=== PATIENT | male | born 1975 | race Caucasian/White ===

== ENCOUNTER 2017-01-18 20:45 | Emergency (ER) | payer MEDICAID ==
[2017-01-18] MEDS ORDERED: NS 1,000 ML IV ONE (21:53)
[2017-01-18 21:58] LABS: % IMMATURE GRANULYOCYTES 0.2 % (0.0-1.1); ABSOLUTE IMMATURE GRANULOCYTES 0.02 10^3/uL (0.00-0.10); ADD DIFF? NO; ADD MORPH? NO; ADD SCAN? NO; ATYPICAL LYMPHOCYTE FLAG 10 (0-99); FRAGMENT RBC FLAG 0 (0-99); HEMATOCRIT 40.5 % (40.0-51.0); HEMOGLOBIN 13.9 g/dL (13.7-17.5); LEFT SHIFT FLG 0 (0-99); LIPEMIA HEMOLYSIS FLAG 90 (0-99); MEAN CELL HEMOGLOBIN 28.5 pg (27.9-34.1); MEAN CELL HEMOGLOBIN CONCENTR. 34.3 g/dL (32.4-36.7); PLATELET CLUMPS FLAG 10 (0-99); PLATELET COUNT 270 10^3/uL (150-400); RED BLOOD CELL COUNT 4.88 10^6/uL (4.40-6.38); RED CELL DISTRIBUTION WIDTH 13.3 % (11.5-15.2)
--- NOTE | 2017-01-18 21:58 | EDPHY ---
H & P Stated Complaint: pt says having SI Source: Patient Exam Limitations: No limitations - Medical/Surgical History Hx Asthma: No Hx Chronic Respiratory Disease: No Hx Diabetes: No Hx Cardiac Disease: No Hx Renal Disease: No Hx Cirrhosis: No Hx Alcoholism: No Hx HIV/AIDS: No Hx Splenectomy or Spleen Trauma: No Other PMH: anxiety/depression, appendectomy, orif LLE - Family History Significant Family History: No pertinent family hx - Social History Smoking Status: Current some day smoker Alcohol Use: Sober Drug Use: None Time Seen by Provider: 01/18/17 21:47 HPI/ROS: CHIEF COMPLAINT: Suicidal ideation HISTORY OF PRESENT ILLNESS: Patient is a 41-year-old man with a history of bipolar as psychotic features comes to the emergency department complaining of suicidal ideations. He states that his friends made him come. He was recently admitted to a psychiatric facility but discharged and states that he has been drinking heavily since. He has also been using marijuana today. He states that he had but a flare gun today because he knows a can fit a 12 gauge shotgun cartridge and plans to kill himself at the [employer] on Wednesday. He states that for the last 2 days he has been trying to drink himself to . REVIEW OF SYSTEMS: Constitutional: denies: chills, fever, recent illness, recent injury EENTM: denies: blurred vision, double vision, nose congestion Respiratory: denies: cough, shortness of breath Cardiac: denies: chest pain, irregular heart rate, lightheadedness, palpitations Gastrointestinal/Abdominal: denies: abdominal pain, diarrhea, nausea, vomiting, blood streaked stools Genitourinary: denies: dysuria, frequency, hematuria, pain Musculoskeletal: denies: joint pain, muscle pain Skin: denies: lesions, rash, jaundice, bruising Neurological: denies: headache, numbness, paresthesia, tingling, dizziness, weakness Hematologic/Lymphatic: denies: blood clots, easy bleeding, easy bruising Immunologic/allergic: denies: HIV/AIDS, transplant EXAM: GENERAL: Disheveled and in no acute distress. HEAD: Atraumatic, normocephalic. EYES: Pupils equal round and reactive to light, extraocular movements intact, sclera anicteric, conjunctiva are normal. ENT: TMs normal, nares patent, oropharynx clear without exudates. Moist mucous membranes. NECK: Normal range of motion, supple without lymphadenopathy or JVD. LUNGS: Breath sounds clear to auscultation bilaterally and equal. No wheezes rales or rhonchi. HEART: Regular rate and rhythm without murmurs, rubs or gallops. ABDOMEN: Soft, nontender, normoactive bowel sounds. No guarding, no rebound. No masses appreciated. BACK: No CVA tenderness, no spinal tenderness, step-offs or deformities EXTREMITIES: Normal range of motion, no pitting or edema. No clubbing or cyanosis. NEUROLOGICAL: Cranial nerves II through XII grossly intact. Normal speech, normal gait. 5/5 strength, normal movement in all extremities, normal sensation PSYCH: Normal mood, normal affect. SKIN: Warm, dry, normal turgor, no visible rashes or lesions. (Adán Fam) Constitutional: Initial Vital Signs Temperature (C) 37.1 C 01/18/17 20:57 Heart Rate 129 H 01/18/17 20:57 Respiratory Rate 18 01/18/17 20:57 Blood Pressure 127/87 H 01/18/17 20:57 O2 Sat (%) 93 01/18/17 20:57 O2 Delivery Mode Room Air Allergies/Adverse Reactions: Penicillins Allergy (Verified 01/18/17 21:00) Home Medications: Medication Instructions Recorded Ativan 01/18/17 Bupropion HCl 01/18/17 Effexor Xr 01/18/17 GABAPENTIN 01/18/17 [place] 5/325 (*) 01/18/17 ZYRTEC 01/18/17 Medical Decision Making ED Course/Re-evaluation: 0 700: The patient is signed out to me at change of shift by Dr. Driscoll. Patient is resting comfortably in the room. He has no new complaints. (Vilma Hill) I took over care of this patient at 7:00 a.m.. This patient is here for suicidal ideations. He is also bipolar. He was drinking alcohol last night. He is waiting evaluation. He has been medically cleared. He is on an M1 hold. Care turned over to Dr. Paredes at 3:30 p.m.. Psychiatric disposition pending. ( Maury Bentley) 6:00 a.m. the patient is no longer tachycardic. His blood alcohol level is below 50. Mental health has been called to evaluate. 7:00 a.m. care transferred to Dr. Maury Bentley. (Adán Fam) Differential Diagnosis: Partial list of the Differential diagnosis considered include but were not limited to; suicidality, depression, substance abuse and although unlikely based on the history and physical exam, I also considered injury, infection. (Adán Fam) Other Provider: I assumed care of the patient at 3:30 p.m. with psychiatric disposition pending. Update at 10:30 p.m.: The patient has been accepted for inpatient admission at [facility] by Dr. Barakat. I have filled out the EMTALA transfer form. ( Michael Paredes) 6:36 a.m.- I assumed care of this patient at approximately 11:00 p.m.. The plan was for the patient to be transferred to [facility]. However, because of insurance issues, he was not transferred during my shift. The mental health team is looking for possible other options for him. He has been stable throughout my shift and will be signed out to the [facility] provider Dr. Hill. (Lauren Driscoll) - Data Points Laboratory Results: Laboratory Results 01/18/17 21:50 01/18/17 21:50 Medications Given: Discontinued Medications Sodium Chloride (Ns) 1,000 mls @ 0 mls/hr IV ONCE ONE PRN Reason: Wide Open Stop: 01/18/17 21:54 Last Admin: 01/18/17 21:54 Dose: 1,000 mls Sodium Chloride (Ns) 1,000 mls @ 0 mls/hr IV ONCE ONE PRN Reason: Wide Open Stop: 01/19/17 00:44 Last Admin: 01/18/17 22:30 Dose: 1,000 mls Sodium Chloride (Ns) 1,000 mls @ 0 mls/hr IV ONCE ONE PRN Reason: Wide Open Stop: 01/19/17 00:46 Last Admin: 01/19/17 00:46 Dose: 1,000 mls Departure - Departure Disposition: Other Psych, Not [place] Clinical Impression: Suicidal ideation Condition: Fair Referrals: NONE *PRIMARY CARE P,. [Primary Care Provider] - As per Instructions
[2017-01-18 22:08] LABS: ANION GAP 17 mEq/L (8-16); CALCIUM 9.4 mg/dL (8.5-10.4); CARBON DIOXIDE 23 mEq/l (22-31); CHLORIDE 105 mEq/L (97-110); CREATININE 0.9 mg/dL (0.7-1.3); ETHANOL SERUM 246 mg/dL (0-10); GLOMERULAR FILTRATION RATE > 60; GLUCOSE 97 mg/dL (70-100); POTASSIUM 3.9 mEq/L (3.5-5.2); SODIUM 145 mEq/L (134-144)
[2017-01-19] MEDS ORDERED: NS 1,000 ML IV ONE ×2 (00:43→00:45)
[2017-01-20 09:18] VITALS: O2SAT 94
[2017-01-20 15:23] VITALS: BP 134/96; PULSE 100; RESP 16; TEMP 98.1
== END 2017-01-20 15:21 ==
DX: R45.851 Suicidal ideations (principal); F17.200 Nicotine dependence, unspecified, uncomplicated
CPT/HCPCS: 80305; G0480

== ENCOUNTER 2017-03-13 12:41 | Emergency (ER) | payer MEDICAID ==
[2017-03-13 12:53] VITALS: RESP 16
--- NOTE | 2017-03-13 13:18 | EDPHY ---
H & P Stated Complaint: M1-SI , etoh, hearing voices to harm self Time Seen by Provider: 03/13/17 13:18 - Medical/Surgical History Hx Asthma: No Hx Chronic Respiratory Disease: No Hx Diabetes: No Hx Cardiac Disease: No Hx Renal Disease: No Hx Cirrhosis: No Hx Alcoholism: No Hx HIV/AIDS: No Hx Splenectomy or Spleen Trauma: No Other PMH: anxiety/depression, appendectomy, Released cent peaks early february 2017 - Social History Smoking Status: Current some day smoker Constitutional: Initial Vital Signs Temperature (C) 36.9 C 03/13/17 12:50 Heart Rate 95 03/13/17 12:50 Respiratory Rate 16 03/13/17 12:50 Blood Pressure 158/85 H 03/13/17 12:50 O2 Sat (%) 98 03/13/17 12:50 O2 Delivery Mode Room Air Allergies/Adverse Reactions: Penicillins Allergy (Verified 01/18/17 21:00) Home Medications: Medication Instructions Recorded Ativan 01/18/17 Bupropion HCl 01/18/17 Effexor Xr 01/18/17 GABAPENTIN 01/18/17 Adderall 30 mg Tablet 03/13/17 Medical Decision Making ED Course/Re-evaluation: CHIEF COMPLAINT: Psychiatric evaluation HISTORY OF PRESENT ILLNESS: 42-year-old gentleman who we have seen here multiple times for his schizophrenia. This patient was hearing voices and the voices were telling him to harm himself. He walked into a veterinary emergency department thinking that it was a human emergency department asking for help. They called the police and ambulance and he was safely transported here for evaluation. The patient is very common cooperative but states that he is hearing voices. It is unclear whether not he is compliant with his medicines at this time. He denies any drug or alcohol abuse. REVIEW OF SYSTEMS: A 10 point review of systems was performed and is negative with the exception of the elements mentioned in the history of present illness. PHYSICAL EXAM: General Appearance: Alert, well hydrated, appropriate, and non-toxic appearing. Head: Atraumatic without scalp tenderness or obvious injury Eyes: Pupils equal, round, reactive to light and accommodation, EOMI, no trauma , no injection. Ears: Clear bilaterally, no perforation, normal landmarks Nose: Atraumatic, no rhinorrhea, clear. Throat: There is no erythema or exudates, no lesions, normal tonsils, mucus membranes moist. Neck: Supple, 2+ carotid upstroke, nontender, no lymphadenopathy. Respiratory: No retractions, no distress, no wheezes, and no accessory muscle use. Lungs are clear to auscultation bilaterally. Cardiovascular: Regular rate and rhythm, no murmurs, rubs, or gallops. Bilateral carotid, radial, dorsalis pedis, and posterior tibial pulses intact. Good capillary refill all extremities. Gastrointestinal: Abdomen is soft, nontender, non-distended, no masses, no rebound, no guarding, no peritoneal signs. Musculoskeletal: Normal active ROM of all extremities, atraumatic. Neurological: Alert, appropriate, and interactive. The patient has normal DTRs and non-focal cranial nerves, motor, sensory, and cerebellar exam. Skin: No rashes, good turgor, no nodules on palpation. Past medical history: Psychiatric illness including schizophrenia Past surgical history: Noncontributory Family history: Patient unsure Social history: Patient not forthcoming with information to a great extent but he apparently is single and unemployed and denies tobacco drug or alcohol abuse DIFFERENTIAL DIAGNOSIS: The differential diagnosis for the patient's depression included but was not limited to functional and major depression, situational depression, medication side effect, drugs, and alcohol abuse. MEDICAL DECISION MAKING: Patient is in no acute distress and is hemodynamically stable. We are awaiting psychiatric team's evaluation. Patient has known history of psychiatric disorders and is here for evaluation. 1957: Consulted with mental health. He has been evaluated by mental health. They recommend transfer to [facility] and do not feel placement is necessary. I have lifted the hold. - Data Points Laboratory Results: Laboratory Results 03/13/17 13:25 03/13/17 13:25 03/13/17 03/13/17 03/13/17 14:15 13:25 13:25 WBC 8.96 10^3/uL 10^3/uL (3.80-9.50) RBC 5.12 10^6/uL 10^6/uL (4.40-6.38) Hgb 14.2 g/dL g/dL (13.7-17.5) Hct 40.8 % % (40.0-51.0) MCV 79.7 fL L fL (81.5-99.8) MCH 27.7 pg L pg (27.9-34.1) MCHC 34.8 g/dL g/dL (32.4-36.7) RDW 13.1 % % (11.5-15.2) Plt Count 265 10^3/uL 10^3/uL (150-400) MPV 11.1 fL fL (8.7-11.7) Neut % (Auto) 55.3 % % (39.3-74.2) Lymph % (Auto) 33.8 % % (15.0-45.0) Chase % (Auto) 8.8 % % (4.5-13.0) Eos % (Auto) 1.5 % % (0.6-7.6) Baso % (Auto) 0.3 % % (0.3-1.7) Nucleat RBC Rel Count 0.0 % % (0.0-0.2) Absolute Neuts (auto) 4.95 10^3/uL 10^3/uL (1.70-6.50) Absolute Lymphs (auto) 3.03 10^3/uL H 10^3/uL (1.00-3.00) Absolute Monos (auto) 0.79 10^3/uL 10^3/uL (0.30-0.80) Absolute Eos (auto) 0.13 10^3/uL 10^3/uL (0.03-0.40) Absolute Basos (auto) 0.03 10^3/uL 10^3/uL (0.02-0.10) Absolute Nucleated RBC 0.00 10^3/uL 10^3/uL (0-0.01) Immature Gran % 0.3 % % (0.0-1.1) Immature Gran # 0.03 10^3/uL 10^3/uL (0.00-0.10) Sodium 145 mEq/L H mEq/L (134-144) Potassium 4.3 mEq/L mEq/L (3.5-5.2) Chloride 107 mEq/L mEq/L (97-110) Carbon Dioxide 17 mEq/l L mEq/l (22-31) Anion Gap 21 mEq/L H mEq/L (8-16) BUN 9 mg/dL mg/dL (7-23) Creatinine 0.9 mg/dL mg/dL (0.7-1.3) Estimated GFR > 60 Glucose 112 mg/dL H mg/dL (70-100) Calcium 9.6 mg/dL mg/dL (8.5-10.4) Salicylates < 1.0 mg/dL L mg/dL (2.0-20.0) Urine Opiates Screen NEGATIVE (NEGATIVE) Acetaminophen < 10 mcg/mL L mcg/mL (10.0-30.0) Urine Barbiturates NEGATIVE (NEGATIVE) Ur Phencyclidine Scrn NEGATIVE (NEGATIVE) Ur Amphetamine Screen NEGATIVE (NEGATIVE) U Benzodiazepines Scrn NEGATIVE (NEGATIVE) Urine Cocaine Screen NEGATIVE (NEGATIVE) U Marijuana (THC) Screen NEGATIVE (NEGATIVE) Ethyl Alcohol 202 mg/dL H mg/dL (0-10) Departure - Departure Disposition: Home, Routine, Self-Care Clinical Impression: Alcohol intoxication Qualifiers: Complication of substance-induced condition: uncomplicated Qualified Code(s): F10.920 - Alcohol use, unspecified with intoxication, uncomplicated Condition: Good Instructions: Alcohol Intoxication (ED) Additional Instructions: Take Librium as prescribed. Return for any serious worsening of condition. Referrals: [facility] [Outside] - As per Instructions AMBER [facility] [Other] - As per Instructions
[2017-03-13 13:40] LABS: % IMMATURE GRANULYOCYTES 0.3 % (0.0-1.1); ABSOLUTE IMMATURE GRANULOCYTES 0.03 10^3/uL (0.00-0.10); ADD DIFF? NO; ADD MORPH? NO; ADD SCAN? NO; ATYPICAL LYMPHOCYTE FLAG 10 (0-99); FRAGMENT RBC FLAG 0 (0-99); HEMATOCRIT 40.8 % (40.0-51.0); HEMOGLOBIN 14.2 g/dL (13.7-17.5); LEFT SHIFT FLG 0 (0-99); LIPEMIA HEMOLYSIS FLAG 90 (0-99); MEAN CELL HEMOGLOBIN 27.7 pg (27.9-34.1); MEAN CELL HEMOGLOBIN CONCENTR. 34.8 g/dL (32.4-36.7); MEAN CELL VOLUME 79.7 fL (81.5-99.8); MEAN PLATELET VOLUME 11.1 fL (8.7-11.7); PLATELET CLUMPS FLAG 0 (0-99); PLATELET COUNT 265 10^3/uL (150-400); RED BLOOD CELL COUNT 5.12 10^6/uL (4.40-6.38); RED CELL DISTRIBUTION WIDTH 13.1 % (11.5-15.2)
[2017-03-13 13:51] LABS: ANION GAP 21 mEq/L (8-16); CALCIUM 9.6 mg/dL (8.5-10.4); CARBON DIOXIDE 17 mEq/l (22-31); CHLORIDE 107 mEq/L (97-110); CREATININE 0.9 mg/dL (0.7-1.3); ETHANOL SERUM 202 mg/dL (0-10); GLOMERULAR FILTRATION RATE > 60; GLUCOSE 112 mg/dL (70-100); POTASSIUM 4.3 mEq/L (3.5-5.2); SALICYLATE < 1.0 mg/dL (2.0-20.0); SODIUM 145 mEq/L (134-144)
[2017-03-13] MEDS ORDERED: CHLORDIAZEPOXIDE 25MG PREPK#6 BTL TAKEHOME ONE (19:56)
[2017-03-13 20:18] VITALS: BP 145/88; PULSE 99; TEMP 98.1; O2SAT 95
== END 2017-03-13 20:24 | disposition home or self-care (01) ==
DX: F10.120 Alcohol abuse with intoxication, uncomplicated (principal); F17.200 Nicotine dependence, unspecified, uncomplicated
CPT/HCPCS: 80305; G0480

== ENCOUNTER 2017-03-17 20:04 | Emergency (ER) | payer MEDICAID ==
--- NOTE | 2017-03-17 20:45 | EDPHY ---
H & P Stated Complaint: off meds briefly, now feeling emotionally labile and homicidal , wants eval - Medical/Surgical History Hx Asthma: No Hx Chronic Respiratory Disease: No Hx Diabetes: No Hx Cardiac Disease: No Hx Renal Disease: No Hx Cirrhosis: No Hx Alcoholism: No Hx HIV/AIDS: No Hx Splenectomy or Spleen Trauma: No Other PMH: PMHx: anxiety/depression. PSHx: appendectomy, 3 pins in L tibia, skin graft L forearm - Social History Smoking Status: Current some day smoker Time Seen by Provider: 03/17/17 20:33 HPI/ROS: CHIEF COMPLAINT: Suicidal ideation, homicidal ideation HISTORY OF PRESENT ILLNESS: 42-year-old male took the bus to the emergency department, history of bipolar disorder, has been recently off of his medications, complaining of suicidal ideation and homicidal ideation. Will not tell me who he has homicidal ideations directed at. He was recently [facility] from [facility] ago and was not given is Effexor, was restarted on his Effexor this morning states that he still feels off balance. No temp is a suicide or homicide. No self-injury. No physical complaints of pain or discomfort. No hallucination. REVIEW OF SYSTEMS: A ten point review of systems was performed and is negative with the exception of the items mentioned in the HPI PAST MEDICAL & SURGICAL HISTORY: Bipolar disorder SOCIAL HISTORY:alcoholism PHYSICAL EXAM (Prior to examination, patient consented to physical exam, hands were washed and my usual and customary physical exam procedures followed) 1) GENERAL: Well-developed, well-nourished, alert and oriented. Appears to be in no acute distress. 2) HEAD: Normocephalic, atraumatic 3) HEENT: Pupils equal, round, reactive to light bilaterally. Sclera anicteric. 4) NECK: Full range of motion, no meningeal signs. 5) LUNGS: Clear auscultation bilaterally, no wheezes, no rhonchi, no retractions. 6) HEART: Regular rate and rhythm, no murmur, no heave, no gallop. 7) ABDOMEN: No guarding, no rebound, no focal tenderness, 8) MUSCULOSKELETAL: No peripheral edema or discoloration. 9) BACK: no obvious trauma, no visual or palpable abnormality. 10) SKIN: No rash, no petechiae. 11) Psychiatric: Patient is oriented X 3, comp cooperative. DIFFERENTIAL DIAGNOSIS: [no particular include but limited to suicidal ideation , homicidal ideation, jacob, psychosis (Shandra Marquez Natasha) Constitutional: Initial Vital Signs Temperature (C) 37.3 C 03/17/17 20:18 Heart Rate 116 H 03/17/17 20:18 Respiratory Rate 16 03/17/17 20:18 Blood Pressure 132/96 H 03/17/17 20:18 O2 Sat (%) 95 03/17/17 20:18 O2 Delivery Mode Room Air Allergies/Adverse Reactions: Penicillins Allergy (Verified 01/18/17 21:00) Home Medications: Medication Instructions Recorded Effexor Xr 187.5 AC 01/18/17 GABAPENTIN 300 mg TID 01/18/17 Adderall 20 mg (*) BID 03/17/17 Medical Decision Making ED Course/Re-evaluation: 8:40 p.m.: Consultation with Dr. Pineda patient has been placed on M1 hold. He is endorsing suicidal and homicidal ideations. He will not state who has homicidal ideations directed toward (Shandra Marquez Natasha) 0700: I assumed care of this patient from Dr. Driscoll at shift change. Currently undergoing evaluation. 0715: I spoke with EPS after their evaluation. She recommends transfer to [facility], believing his psychiatric issues today to be secondary to alcohol use. I have dropped the hold. He will be sent with a Librium prepack. (Jorge Alberto Chandler) Other Provider: The patient was evaluated and managed by the Physician Animal Tech/ Nurse Practitioner. I discussed the patient's presentation and course with the midlevel provider with them and agree with the evaluation. My co-signature indicates that I have reviewed this chart and I agree with the findings and plan of care as documented. I am the secondary supervising physician. (Selma Pineda) - Data Points Laboratory Results: Laboratory Results 03/17/17 20:52 03/17/17 20:52 03/17/17 03/17/17 03/17/17 21:15 20:52 20:52 WBC 12.45 10^3/uL H 10^3/uL (3.80-9.50) RBC 5.30 10^6/uL 10^6/uL (4.40-6.38) Hgb 14.7 g/dL g/dL (13.7-17.5) Hct 43.6 % % (40.0-51.0) MCV 82.3 fL fL (81.5-99.8) MCH 27.7 pg L pg (27.9-34.1) MCHC 33.7 g/dL g/dL (32.4-36.7) RDW 13.6 % % (11.5-15.2) Plt Count 267 10^3/uL 10^3/uL (150-400) MPV 11.3 fL fL (8.7-11.7) Neut % (Auto) 61.9 % % (39.3-74.2) Lymph % (Auto) 27.6 % % (15.0-45.0) Mck[place] % (Auto) 9.2 % % (4.5-13.0) Eos % (Auto) 0.9 % % (0.6-7.6) Baso % (Auto) 0.2 % L % (0.3-1.7) Nucleat RBC Rel Count 0.0 % % (0.0-0.2) Absolute Neuts (auto) 7.70 10^3/uL H 10^3/uL (1.70-6.50) Absolute Lymphs (auto) 3.44 10^3/uL H 10^3/uL (1.00-3.00) Absolute Monos (auto) 1.14 10^3/uL H 10^3/uL (0.30-0.80) Absolute Eos (auto) 0.11 10^3/uL 10^3/uL (0.03-0.40) Absolute Basos (auto) 0.03 10^3/uL 10^3/uL (0.02-0.10) Absolute Nucleated RBC 0.00 10^3/uL 10^3/uL (0-0.01) Immature Gran % 0.2 % % (0.0-1.1) Immature Gran # 0.03 10^3/uL 10^3/uL (0.00-0.10) Sodium 145 mEq/L H mEq/L (134-144) Potassium 3.8 mEq/L mEq/L (3.5-5.2) Chloride 105 mEq/L mEq/L (97-110) Carbon Dioxide 19 mEq/l L mEq/l (22-31) Anion Gap 21 mEq/L H mEq/L (8-16) BUN 12 mg/dL mg/dL (7-23) Creatinine 1.0 mg/dL mg/dL (0.7-1.3) Estimated GFR > 60 Glucose 104 mg/dL H mg/dL (70-100) Calcium 10.1 mg/dL mg/dL (8.5-10.4) Salicylates < 1.0 mg/dL L mg/dL (2.0-20.0) Urine Opiates Screen NEGATIVE (NEGATIVE) Acetaminophen < 10 mcg/mL L mcg/mL (10.0-30.0) Urine Barbiturates NEGATIVE (NEGATIVE) Ur Phencyclidine Scrn NEGATIVE (NEGATIVE) Ur Amphetamine Screen NEGATIVE (NEGATIVE) U Benzodiazepines Scrn NON-NEGATIVE H (NEGATIVE) Urine Cocaine Screen NEGATIVE (NEGATIVE) U Marijuana (THC) Screen NON-NEGATIVE H (NEGATIVE) Ethyl Alcohol 169 mg/dL H mg/dL (0-10) Medications Given: Discontinued Medications Lorazepam (Ativan) 1 mg PO EDNOW ONE Stop: 03/17/17 21:09 Last Admin: 03/17/17 21:13 Dose: 1 mg Departure - Departure Disposition: Home, Routine, Self-Care Clinical Impression: Suicidal ideation, Homicidal ideation Condition: Fair Instructions: Chlordiazepoxide (By mouth), Alcohol Intoxication (ED) Additional Instructions: Return for any serious worsening of condition. Referrals: [facility] [Outside] - As per Instructions
[2017-03-17 21:02] LABS: % IMMATURE GRANULYOCYTES 0.2 % (0.0-1.1); ABSOLUTE IMMATURE GRANULOCYTES 0.03 10^3/uL (0.00-0.10); ADD DIFF? NO; ADD MORPH? NO; ADD SCAN? NO; ATYPICAL LYMPHOCYTE FLAG 10 (0-99); FRAGMENT RBC FLAG 0 (0-99); HEMATOCRIT 43.6 % (40.0-51.0); HEMOGLOBIN 14.7 g/dL (13.7-17.5); LEFT SHIFT FLG 0 (0-99); LIPEMIA HEMOLYSIS FLAG 80 (0-99); MEAN CELL HEMOGLOBIN 27.7 pg (27.9-34.1); MEAN CELL HEMOGLOBIN CONCENTR. 33.7 g/dL (32.4-36.7); MEAN CELL VOLUME 82.3 fL (81.5-99.8); MEAN PLATELET VOLUME 11.3 fL (8.7-11.7); PLATELET CLUMPS FLAG 0 (0-99); PLATELET COUNT 267 10^3/uL (150-400); RED CELL DISTRIBUTION WIDTH 13.6 % (11.5-15.2)
[2017-03-17] MEDS ORDERED: LORazepam 1 MG TAB PO ONE (21:08)
[2017-03-17 21:36] LABS: ANION GAP 21 mEq/L (8-16); CALCIUM 10.1 mg/dL (8.5-10.4); CARBON DIOXIDE 19 mEq/l (22-31); CHLORIDE 105 mEq/L (97-110); ETHANOL SERUM 169 mg/dL (0-10); GLOMERULAR FILTRATION RATE > 60; GLUCOSE 104 mg/dL (70-100); POTASSIUM 3.8 mEq/L (3.5-5.2); SALICYLATE < 1.0 mg/dL (2.0-20.0); SODIUM 145 mEq/L (134-144)
[2017-03-18] MEDS ORDERED: CHLORDIAZEPOXIDE 25MG PREPK#6 BTL TAKEHOME ONE (07:32)
[2017-03-18 07:44] VITALS: BP 135/97; PULSE 99; RESP 18; TEMP 98.2; O2SAT 94
== END 2017-03-18 07:44 | disposition home or self-care (01) ==
DX: R45.851 Suicidal ideations (principal); R45.850 Homicidal ideations; F17.200 Nicotine dependence, unspecified, uncomplicated
CPT/HCPCS: 80305; G0480

== ENCOUNTER 2017-03-29 16:06 | Emergency (ER) | payer MEDICAID ==
--- NOTE | 2017-03-29 16:40 | EDPHY ---
H & P Stated Complaint: Paranoid, depressed. SI - letters to roomate - Personal History Current Tetanus/Diphtheria Vaccine: Yes Current Tetanus Diphtheria and Acellular Pertussis (TDAP): Yes - Medical/Surgical History Hx Asthma: No Hx Chronic Respiratory Disease: No Hx Diabetes: No Hx Cardiac Disease: No Hx Renal Disease: No Hx Cirrhosis: No Hx Alcoholism: No Hx HIV/AIDS: No Hx Splenectomy or Spleen Trauma: No Other PMH: PMHx: anxiety/depression. PSHx: appendectomy, 3 pins in L tibia, skin graft L forearm - Social History Smoking Status: Current some day smoker Time Seen by Provider: 03/29/17 16:40 Constitutional: Initial Vital Signs Temperature (C) 36.6 C 03/29/17 16:14 Heart Rate 126 H 03/29/17 16:14 Respiratory Rate 16 03/29/17 16:14 Blood Pressure 158/110 H 03/29/17 16:14 O2 Sat (%) 95 03/29/17 16:14 O2 Delivery Mode Room Air Allergies/Adverse Reactions: Penicillins Allergy (Verified 01/18/17 21:00) Home Medications: Medication Instructions Recorded Effexor Xr 187.5 AC 01/18/17 GABAPENTIN 300 mg TID 01/18/17 Adderall 20 mg (*) BID 03/17/17 Medical Decision Making ED Course/Re-evaluation: CHIEF COMPLAINT: Psychiatric evaluation HISTORY OF PRESENT ILLNESS: Patient is feeling suicidal, homicidal, paranoid. He does not believe his medicines are working. He was recently evaluated at another facility and they tried to help him with outpatient management however he is feeling worse. He came here voluntarily. He denies substance abuse today. REVIEW OF SYSTEMS: A 10 point review of systems was performed and is negative with the exception of the elements mentioned in the history of present illness. PHYSICAL EXAM: General Appearance: Alert, well hydrated, appropriate, and non-toxic appearing. Head: Atraumatic without scalp tenderness or obvious injury Eyes: Pupils equal, round, reactive to light and accommodation, EOMI, no trauma , no injection. Ears: Clear bilaterally, no perforation, normal landmarks Nose: Atraumatic, no rhinorrhea, clear. Throat: There is no erythema or exudates, no lesions, normal tonsils, mucus membranes moist. Neck: Supple, 2+ carotid upstroke, nontender, no lymphadenopathy. Respiratory: No retractions, no distress, no wheezes, and no accessory muscle use. Lungs are clear to auscultation bilaterally. Cardiovascular: Regular rate and rhythm, no murmurs, rubs, or gallops. Bilateral carotid, radial, dorsalis pedis, and posterior tibial pulses intact. Good capillary refill all extremities. Gastrointestinal: Abdomen is soft, nontender, non-distended, no masses, no rebound, no guarding, no peritoneal signs. Musculoskeletal: Normal active ROM of all extremities, atraumatic. Neurological: Alert, appropriate, and interactive. The patient has normal DTRs and non-focal cranial nerves, motor, sensory, and cerebellar exam. Skin: No rashes, good turgor, no nodules on palpation. Past medical history: Psychiatric problems Past surgical history: Noncontributory Family history: Noncontributory Social history: Single, unemployed, denies street drug abuse, uses cigarettes, homeless at times DIFFERENTIAL DIAGNOSIS: The differential diagnosis for the patient's depression included but was not limited to functional and major depression, situational depression, medication side effect, drugs, and alcohol abuse. MEDICAL DECISION MAKING: Patient is in no acute distress and is hemodynamically stable. We are awaiting psychiatric team's evaluation. Patient has known history of psychiatric disorders and is here for evaluation. (Jorge Alberto Chandler) I took over care of this patient at 11:00 p.m.. The patient is on an M1 hold for suicidal and homicidal ideation. The patient is to be admitted. Destination for admission is pending at this time. 5:00 a.m., patient has been accepted for admission to [facility] by Dr. Yen. I have filled out the appropriate transfer paperwork. The patient's remaining emergency department course under my care has been uneventful. The patient was transferred in stable condition. ( Maury Bentley) - Data Points Laboratory Results: Laboratory Results 03/29/17 17:05 03/29/17 17:05 03/29/17 03/29/17 03/29/17 17:05 17:05 17:05 WBC 11.41 10^3/uL H 10^3/uL (3.80-9.50) RBC 5.28 10^6/uL 10^6/uL (4.40-6.38) Hgb 14.8 g/dL g/dL (13.7-17.5) Hct 42.1 % % (40.0-51.0) MCV 79.7 fL L fL (81.5-99.8) MCH 28.0 pg pg (27.9-34.1) MCHC 35.2 g/dL g/dL (32.4-36.7) RDW 13.6 % % (11.5-15.2) Plt Count 218 10^3/uL 10^3/uL (150-400) MPV 11.1 fL fL (8.7-11.7) Neut % (Auto) 69.1 % % (39.3-74.2) Lymph % (Auto) 20.9 % % (15.0-45.0) [place] % (Auto) 8.7 % % (4.5-13.0) Eos % (Auto) 0.7 % % (0.6-7.6) Baso % (Auto) 0.3 % % (0.3-1.7) Nucleat RBC Rel Count 0.0 % % (0.0-0.2) Absolute Neuts (auto) 7.89 10^3/uL H 10^3/uL (1.70-6.50) Absolute Lymphs (auto) 2.39 10^3/uL 10^3/uL (1.00-3.00) Absolute Monos (auto) 0.99 10^3/uL H 10^3/uL (0.30-0.80) Absolute Eos (auto) 0.08 10^3/uL 10^3/uL (0.03-0.40) Absolute Basos (auto) 0.03 10^3/uL 10^3/uL (0.02-0.10) Absolute Nucleated RBC 0.00 10^3/uL 10^3/uL (0-0.01) Immature Gran % 0.3 % % (0.0-1.1) Immature Gran # 0.03 10^3/uL 10^3/uL (0.00-0.10) Sodium 140 mEq/L mEq/L (134-144) Potassium 3.7 mEq/L mEq/L (3.5-5.2) Chloride 102 mEq/L mEq/L (97-110) Carbon Dioxide 21 mEq/l L mEq/l (22-31) Anion Gap 17 mEq/L H mEq/L (8-16) BUN 8 mg/dL mg/dL (7-23) Creatinine 0.8 mg/dL mg/dL (0.7-1.3) Estimated GFR > 60 Glucose 94 mg/dL mg/dL (70-100) Calcium 9.9 mg/dL mg/dL (8.5-10.4) Salicylates < 1.0 mg/dL L mg/dL (2.0-20.0) Urine Opiates Screen NEGATIVE (NEGATIVE) Acetaminophen < 10 mcg/mL L mcg/mL (10-30) Urine Barbiturates NEGATIVE (NEGATIVE) Ur Phencyclidine Scrn NEGATIVE (NEGATIVE) Ur Amphetamine Screen NEGATIVE (NEGATIVE) U Benzodiazepines Scrn NEGATIVE (NEGATIVE) Urine Cocaine Screen NEGATIVE (NEGATIVE) U Marijuana (THC) Screen NEGATIVE (NEGATIVE) Ethyl Alcohol < 10 mg/dL mg/dL (0-10) Medications Given: Quetiapine Fumarate (Seroquel) 100 mg PO EDNOW ONE Stop: 03/30/17 22:13 Last Admin: 03/29/17 23:31 Dose: 100 mg Departure - Departure Disposition: Other Psych, Not [place] Clinical Impression: Suicidal ideation, Homicidal ideation, Acute psychosis Referrals: NONE *PRIMARY CARE P,. [Primary Care Provider] - As per Instructions
[2017-03-29 17:19] LABS: % IMMATURE GRANULYOCYTES 0.3 % (0.0-1.1); ABSOLUTE IMMATURE GRANULOCYTES 0.03 10^3/uL (0.00-0.10); ADD DIFF? NO; ADD MORPH? NO; ADD SCAN? NO; ATYPICAL LYMPHOCYTE FLAG 0 (0-99); FRAGMENT RBC FLAG 0 (0-99); HEMATOCRIT 42.1 % (40.0-51.0); HEMOGLOBIN 14.8 g/dL (13.7-17.5); LEFT SHIFT FLG 0 (0-99); LIPEMIA HEMOLYSIS FLAG 90 (0-99); MEAN CELL HEMOGLOBIN CONCENTR. 35.2 g/dL (32.4-36.7); MEAN CELL VOLUME 79.7 fL (81.5-99.8); MEAN PLATELET VOLUME 11.1 fL (8.7-11.7); PLATELET CLUMPS FLAG 0 (0-99); PLATELET COUNT 218 10^3/uL (150-400); RED BLOOD CELL COUNT 5.28 10^6/uL (4.40-6.38); RED CELL DISTRIBUTION WIDTH 13.6 % (11.5-15.2)
[2017-03-29 17:41] LABS: ANION GAP 17 mEq/L (8-16); CALCIUM 9.9 mg/dL (8.5-10.4); CARBON DIOXIDE 21 mEq/l (22-31); CHLORIDE 102 mEq/L (97-110); CREATININE 0.8 mg/dL (0.7-1.3); ETHANOL SERUM < 10 mg/dL (0-10); GLOMERULAR FILTRATION RATE > 60; GLUCOSE 94 mg/dL (70-100); POTASSIUM 3.7 mEq/L (3.5-5.2); SALICYLATE < 1.0 mg/dL (2.0-20.0); SODIUM 140 mEq/L (134-144)
[2017-03-30 04:40] VITALS: BP 116/68; RESP 18; TEMP 98.2
[2017-03-30 05:03] VITALS: PULSE 80; O2SAT 97
[2017-03-30] MEDS ORDERED: QUEtiapine FUMARATE 100 MG TAB PO ONE (22:12)
== END 2017-03-30 05:50 ==
DX: R45.851 Suicidal ideations (principal); R45.850 Homicidal ideations; F23 Brief psychotic disorder; F17.200 Nicotine dependence, unspecified, uncomplicated
CPT/HCPCS: 80305; G0480

== ENCOUNTER 2017-04-14 09:47 | Emergency (ER) | payer MEDICAID ==
[2017-04-14 10:27] LABS: % IMMATURE GRANULYOCYTES 0.5 % (0.0-1.1); ABSOLUTE IMMATURE GRANULOCYTES 0.04 10^3/uL (0.00-0.10); ADD DIFF? NO; ADD MORPH? NO; ADD SCAN? NO; ATYPICAL LYMPHOCYTE FLAG 0 (0-99); FRAGMENT RBC FLAG 0 (0-99); HEMOGLOBIN 14.6 g/dL (13.7-17.5); LEFT SHIFT FLG 0 (0-99); LIPEMIA HEMOLYSIS FLAG 90 (0-99); MEAN CELL HEMOGLOBIN 27.3 pg (27.9-34.1); MEAN CELL VOLUME 80.4 fL (81.5-99.8); MEAN PLATELET VOLUME 11.3 fL (8.7-11.7); PLATELET CLUMPS FLAG 0 (0-99); PLATELET COUNT 256 10^3/uL (150-400); RED BLOOD CELL COUNT 5.35 10^6/uL (4.40-6.38); RED CELL DISTRIBUTION WIDTH 13.4 % (11.5-15.2)
[2017-04-14 10:38] LABS: ANION GAP 17 mEq/L (8-16); CALCIUM 10.1 mg/dL (8.5-10.4); CARBON DIOXIDE 20 mEq/l (22-31); CHLORIDE 105 mEq/L (97-110); CREATININE 0.9 mg/dL (0.7-1.3); ETHANOL SERUM < 10 mg/dL (0-10); GLOMERULAR FILTRATION RATE > 60; GLUCOSE 109 mg/dL (70-100); POTASSIUM 4.4 mEq/L (3.5-5.2); SODIUM 142 mEq/L (134-144)
--- NOTE | 2017-04-14 10:52 | EDPHY ---
H & P Smoking Status: Current some day smoker Time Seen by Provider: 04/14/17 10:01 HPI/ROS: CHIEF COMPLAINT: Depression, feeling suicidal HISTORY OF PRESENT ILLNESS: 42-year-old male presents to the emergency department by private vehicle complaining of feeling depressed and suicidal. The patient was recently seen at [facility] and was sent to an intensive outpatient type program for his depression and anxiety. He has been on Effexor and gabapentin for quite some time and they recently increased this 2 weeks ago. He continues to feel depressed and suicidal. His plan is to jump in front of a moving train. He denies homicidal ideation. Denies auditory visual hallucinations. He states that he has been feeling increasingly depressed since "." He denies substance abuse or alcohol. Currently has no physical complaints. REVIEW OF SYSTEMS: Constitutional: No fever, no chills. Eyes: No double or blurry vision. ENT: No sore throat. Respiratory: No cough, no shortness of breath. Cardiac: No chest pain. Gastrointestinal: No abdominal pain, vomiting or diarrhea. Genitourinary: No dysuria. Musculoskeletal: No neck or back pain. Skin: No rashes. Neurological: No headache. (Elvia Jamison) Past Medical/Surgical History: Depression, anxiety (Elvia Jamison) Social History: Single and lives with roommates (Elvia Jamison) Physical Exam: General Appearance: Alert, no distress. Eyes: Pupils equal and round. Extraocular motions are all intact. ENT: Mouth: Mucous membranes moist. Respiratory: No wheezing, rhonchi, or rales, lungs are clear to auscultation. Cardiovascular: Regular rate and rhythm. Gastrointestinal: Abdomen is soft and nontender, no masses, no rebound or guarding, bowel sounds normal. Neurological: Alert and oriented x 3, cranial nerves II through XII grossly intact Skin: Warm and dry, no rashes. Musculoskeletal: Nontender to palpate along the cervical, thoracic or lumbar spine. Neck is supple. Extremities: Full range of motion and no peripheral edema. Psychiatric: Patient is oriented X 3, there is no agitation. (Elvia Jamison) Constitutional: Initial Vital Signs Temperature (C) 36.8 C 04/14/17 09:50 Heart Rate 116 H 04/14/17 09:50 Respiratory Rate 20 04/14/17 09:50 Blood Pressure 138/97 H 04/14/17 09:50 O2 Sat (%) 92 04/14/17 09:50 O2 Delivery Mode Room Air Allergies/Adverse Reactions: Penicillins Allergy (Verified 04/14/17 09:49) Home Medications: Medication Instructions Recorded Effexor Xr 187.5 AC 01/18/17 GABAPENTIN 300 mg TID 01/18/17 Adderall 20 mg (*) BID 03/17/17 Medical Decision Making ED Course/Re-evaluation: 42-year-old male presents feeling depressed and suicidal. He has been medically cleared. He was evaluated by mental health. He apparently was just recently discharged from [facility]. The real estate director has consulted with the on-call psychiatrist and they feel that he is safe for discharge. He told that he is not feeling suicidal anymore. He has a safety plan in place. (Elvia Jamison) 6:05 p.m.: Per nursing staff, the patient states he is suicidal. She tried to discharge the patient and he told her he no longer needed any of his belongings because he was going to walk out into traffic. I talked with the patient and he still claims to be suicidal. I spoke with the mental health whipped topping supervisor and she states that he is cleared to be discharged home. Apparently he has been hospitalized 6 times in the past couple of months for suicidal ideation and continues have suicidal ideation. The whipped topping supervisor has been personally involved with this case, and feels that he is safe for d/c home. Given that we are not completely comfortable with this plan, he will go directly to the crisis center for reevaluation. (Tequila Johansen) Differential Diagnosis: Depression including functional and major depression, situational depression, medication side effect, drugs and alcohol abuse. (Elvia Jamison) - Data Points Laboratory Results: Laboratory Results 04/14/17 10:10 04/14/17 10:10 04/14/17 04/14/17 04/14/17 10:10 10:10 10:00 WBC 8.24 10^3/uL 10^3/uL (3.80-9.50) RBC 5.35 10^6/uL 10^6/uL (4.40-6.38) Hgb 14.6 g/dL g/dL (13.7-17.5) Hct 43.0 % % (40.0-51.0) MCV 80.4 fL L fL (81.5-99.8) MCH 27.3 pg L pg (27.9-34.1) MCHC 34.0 g/dL g/dL (32.4-36.7) RDW 13.4 % % (11.5-15.2) Plt Count 256 10^3/uL 10^3/uL (150-400) MPV 11.3 fL fL (8.7-11.7) Neut % (Auto) 63.2 % % (39.3-74.2) Lymph % (Auto) 26.5 % % (15.0-45.0) [place] % (Auto) 8.6 % % (4.5-13.0) Eos % (Auto) 0.8 % % (0.6-7.6) Baso % (Auto) 0.4 % % (0.3-1.7) Nucleat RBC Rel Count 0.0 % % (0.0-0.2) Absolute Neuts (auto) 5.21 10^3/uL 10^3/uL (1.70-6.50) Absolute Lymphs (auto) 2.18 10^3/uL 10^3/uL (1.00-3.00) Absolute Monos (auto) 0.71 10^3/uL 10^3/uL (0.30-0.80) Absolute Eos (auto) 0.07 10^3/uL 10^3/uL (0.03-0.40) Absolute Basos (auto) 0.03 10^3/uL 10^3/uL (0.02-0.10) Absolute Nucleated RBC 0.00 10^3/uL 10^3/uL (0-0.01) Immature Gran % 0.5 % % (0.0-1.1) Immature Gran # 0.04 10^3/uL 10^3/uL (0.00-0.10) Sodium 142 mEq/L mEq/L (134-144) Potassium 4.4 mEq/L mEq/L (3.5-5.2) Chloride 105 mEq/L mEq/L (97-110) Carbon Dioxide 20 mEq/l L mEq/l (22-31) Anion Gap 17 mEq/L H mEq/L (8-16) BUN 10 mg/dL mg/dL (7-23) Creatinine 0.9 mg/dL mg/dL (0.7-1.3) Estimated GFR > 60 Glucose 109 mg/dL H mg/dL (70-100) Calcium 10.1 mg/dL mg/dL (8.5-10.4) TSH 4.520 uIU/mL uIU/mL (0.465-4.680) Urine Opiates Screen NEGATIVE (NEGATIVE) Urine Barbiturates NEGATIVE (NEGATIVE) Ur Phencyclidine Scrn NEGATIVE (NEGATIVE) Ur Amphetamine Screen NEGATIVE (NEGATIVE) U Benzodiazepines Scrn NEGATIVE (NEGATIVE) Urine Cocaine Screen NEGATIVE (NEGATIVE) U Marijuana (THC) Screen NEGATIVE (NEGATIVE) Ethyl Alcohol < 10 mg/dL mg/dL (0-10) Departure - Departure Disposition: Home, Routine, Self-Care Clinical Impression: Suicidal ideation Depression Qualifiers: Depression Type: unspecified Qualified Code(s): F32.9 - Major depressive disorder, single episode, unspecified Condition: Good Instructions: Depression (ED), Suicide Prevention for Adults (ED) Additional Instructions: Follow-up for mental health instructions. Referrals: [facility],. [Clinic] - As per Instructions
[2017-04-14 16:16] VITALS: BP 129/62; PULSE 92; RESP 16; TEMP 98.8; O2SAT 97
== END 2017-04-14 19:18 | disposition home or self-care (01) ==
LOC: EEVIPCON 09:47
DX: R45.851 Suicidal ideations (principal); F32.9 Major depressive disorder, single episode, unspecified; F17.200 Nicotine dependence, unspecified, uncomplicated
CPT/HCPCS: 80305; G0480

== ENCOUNTER 2017-04-23 03:04 | Emergency (ER) | payer MEDICAID ==
[2017-04-23 03:14] VITALS: RESP 16
--- NOTE | 2017-04-23 03:16 | CPEKG ---
Heart Rate: 98 RR Interval: 612 P-R Interval: 160 QRSD Interval: 72 QT Interval: 352 QTC Interval: 450 P Bonfield: 56 QRS Bonfield: 24 T Wave Bonfield: 6 EKG Severity - NORMAL ECG - EKG Impression: SINUS RHYTHM Electronically Signed By: Lauren Driscoll 24-Apr-2017 06:20:00
--- NOTE | 2017-04-23 06:24 | EDPHY ---
H & P Stated Complaint: TRIPPING ON ACID, CHEST PRESSURE TIRED FREQUENTLY Time Seen by Provider: 04/23/17 05:29 HPI/ROS: HPI The patient presents with sensation of difficulty breathing and labored breathing for the last several hours after using acid 24 hours ago and drinking alcohol. It is associated with a feeling of tightness throughout his chest which is mild. He generally feels tired currently though denies any active hallucinations.. REVIEW OF SYSTEMS Constitutional: No fever, no chills. Eyes: No discharge. ENT: No sore throat. Cardiovascular: No chest pain, no palpitations. Respiratory: No cough, positive for shortness of breath. Gastrointestinal: No abdominal pain, no vomiting. Genitourinary: No hematuria. Musculoskeletal: No back pain. Skin: No rashes. Neurological: No headache. PMHx: Prior visits for mental health Soc Hx: Lives with roommates, positive for LSD use PHYSICAL General Appearance: Alert, no distress Eyes: Pupils equal and round no pallor or injection ENT, Mouth: Mucous membranes moist Respiratory: There are no retractions, lungs are clear to auscultation Cardiovascular: Regular rate and rhythm Gastrointestinal: Abdomen is soft and non-tender, no masses, bowel sounds normal Neurological: A&O, moves all extremities Skin: Warm and dry, no rashes Musculoskeletal: Neck is supple non tender Extremities: symmetrical, full range of motion Psychiatric: Patient is oriented X 3, there is no agitation Source: Patient Exam Limitations: No limitations - Personal History Current Tetanus/Diphtheria Vaccine: Yes Current Tetanus Diphtheria and Acellular Pertussis (TDAP): Yes - Medical/Surgical History Hx Asthma: No Hx Chronic Respiratory Disease: No Hx Diabetes: No Hx Cardiac Disease: No Hx Renal Disease: No Hx Cirrhosis: No Hx Alcoholism: No Hx HIV/AIDS: No Hx Splenectomy or Spleen Trauma: No Other PMH: PMHx: anxiety/depression. PSHx: appendectomy, 3 pins in L tibia, skin graft L forearm - Social History Smoking Status: Current some day smoker Constitutional: Initial Vital Signs Temperature (C) 37.0 C 04/23/17 03:09 Heart Rate 102 H 04/23/17 03:09 Respiratory Rate 16 04/23/17 03:09 Blood Pressure 145/94 H 04/23/17 03:09 O2 Sat (%) 94 04/23/17 03:09 O2 Delivery Mode Room Air Allergies/Adverse Reactions: Penicillins Allergy (Verified 04/23/17 03:13) Home Medications: Medication Instructions Recorded Effexor Xr 187.5 AC 01/18/17 GABAPENTIN 300 mg TID 01/18/17 Adderall 20 mg (*) BID 03/17/17 Medical Decision Making - Diagnostics EKG Interpretation: EKG: Complete interpretation has been separately recorded in the [email or web address] archive. Summary impression: Normal sinus rhythm Differential Diagnosis: This is a 42-year-old male with past medical history of psychiatric disease who presents brought in by ambulance for chest tightness in labored breathing after using LSD. On exam, he has normal vital signs and is generally well-appearing. EKG is unremarkable. Differential diagnosis includes is LSD intoxication, alcohol intoxication, alcohol withdrawal, anxiety. Here in the emergency department, EKG was performed. The patient was observed for approximately 3 and 0.5 hours with improvement in his symptoms. He was able to eat and drink without difficulty and felt well enough to go home. He was discharged. Departure - Departure Disposition: Home, Routine, Self-Care Clinical Impression: LSD reaction Condition: Good Instructions: Polysubstance Abuse (ED) Additional Instructions: Please make sure to drink plenty of fluids. You should return to the ER if your worse in any way. Referrals: [facility],. [Clinic] - As per Instructions
[2017-04-23 06:45] VITALS: BP 136/81; PULSE 95; TEMP 98.4; O2SAT 97
== END 2017-04-23 06:44 | disposition home or self-care (01) ==
LOC: EDUNIT#
DX: T40.8X1A Poisoning by lysergide [LSD], accidental (unintentional), initial encounter (principal); F17.200 Nicotine dependence, unspecified, uncomplicated